=== PATIENT | male | born 1975 | race Caucasian/White ===

== ENCOUNTER 2023-03-13 10:52 | Emergency (ER) | payer OTHER, SELFPAY ==
--- NOTE | ~2023-03-13 | XR_ITS ---
EXAMINATION: XR LUMBOSACRAL SPINE CLINICAL INFORMATION: Pain COMPARISON: None available. TECHNIQUE: Three views of the lumbosacral spine. FINDINGS: There are five segmented, nonrib-bearing vertebra of the lumbar spine. The vertebral bodies have normal height and alignment. The curvature of the lumbar spine is normal. The disc spaces are maintained. No evidence of degenerative disc disease. No pars interarticularis defect or vertebral compression fracture. The anterior and posterior elements are intact. No lytic or osteoblastic lesion. Sacrum and sacroiliac joints are unremarkable. No evidence of sacroiliitis. XR/XR lumbar spine 2-3V IMPRESSION: No specific source of pain is identified. No evidence of degenerative disc disease, fracture or malalignment.
[2023-03-13 10:56] VITALS: BP 176/105; PULSE 93; RESP 18; TEMP 36.9; O2SAT 98; BMI 26.6
--- NOTE | 2023-03-13 10:59 | ED.GENADULT ---
HPI - General Adult General Chief complaint: Back Pain/Injury Stated complaint: Lower Back Pain Work Injury 03/09/23 Time Seen by Provider: 03/13/23 13:39 Source: patient Mode of arrival: ambulatory Limitations: no limitations History of Present Illness HPI narrative: 48 yo male presenting to the ER for evaluation of low back pain for the last 4 days after lifting a 35-40 lb case of cucumbers while at work. Patient states he lifted the box, turned and pivoted, when he put the box down he felt a twinge in his back. He is able to finish his day but had some pain in his lower back. As the days went on the pain progressed and radiates down into the tailbone. It is worse with sitting for prolonged amount of time. It is improved with standing walking around. He denies any numbness or tingling in the legs, no weakness. He does have some pain intermittently that radiates to the right buttock. No inguinal paresthesias. No bowel or bladder incontinence. No urinary symptoms. No falls or other trauma. MD complaint: Low back pain Onset (ago): day(s) (4) Location: back Radiation: other ( tailbone and buttock) Severity: moderate Severity scale (1-10): 7 Quality: stabbing and sharp Pain Consistency: constant Relieving factors: movement Exacerbating factors: other ( sitting, or being in any 1 position for too long) Associated symptoms: denies other symptoms Treatments prior to arrival: NSAID Related Data Previous Rx's Medication Instructions Recorded cyclobenzaprine 10 mg tablet 10 mg PO TID PRN muscle spasm #10 03/13/23 tabs ibuprofen 600 mg tablet 600 mg PO Q8H PRN pain #14 tabs 03/13/23 lidocaine 5 % topical patch 1 patch topical DAILY #15 ea 03/13/23 Allergies Allergy/AdvReac Type Severity Reaction Status Date / Time No Known Allergies Allergy Verified 03/13/23 10:55 Review of Systems Review of Systems: Yes all other systems are reviewed and are negative [facility] Social History Social History Advance Directives: No Advance Directives Information Provided: Yes Physical Exam ED Vital Signs: Vital Signs - 24 hr 03/13/23 10:56 Temperature 98.4 F Pulse Rate 93 Respiratory Rate 18 Blood Pressure 176/105 H Pulse Oximetry 98 Oxygen Delivery Method Room Air BMI result Body Mass Index 26.6 Appearance: Alert. Oriented X3. No acute distress. HEENT: normal inspection CVS: Normal heart rate and rhythm. Pulses normal. Respiratory: No respiratory distress. Skin: Skin warm and dry. Normal skin color. Normal skin turgor. No rashes. Back: Normal inspection. Able to flex and almost touch his toes. There is midline tenderness in the low lumbar area an SI joint tenderness on the right. Extremities: normal inspection, no joint swelling. Neuro: Oriented X 3. No motor deficit. No sensory deficit. Normal reflexes, steady gait. Course Course Course Narrative: RME- 48 year old male presents for evaluation of lower back pain for the last 3 days. He felt a twinge after lifting a container of cucumbers at work. Plan for lumbar x-ray Medical Decision Making Medical Decision Making [facility] Narrative: 48-year-old male presents to the ER for evaluation of low back pain after lifting heavy box on Thursday. No red flag symptoms of low back pain. Most likely muscular in nature, could be some nerve irritation or swelling with the SI joint tenderness. He had a knee unremarkable x-ray of the lumbar spine today. He is ambulatory. He has an appointment with [facility] on [facility]. Will start patient on muscle relaxers and NSAIDs, discussed rest, ice and other conservative measures. We also discussed return precautions and red flag symptoms. Patient agrees with plan is stable for discharge with outpatient follow-up. Differential Diagnosis Differential Diagnoses: The differential diagnosis associated with the presentation includes Inflammatory disorders, malignancy, trauma, osteoporosis, nerve root compression, radiculopathy, plexopathy, degenerative disc disease, disc herniation, spinal stenosis, sacroiliac joint dysfunction, facet joint injury, and less likely infection?like abscess or diskitis Independent Interpretation I performed an independent interpretation of an: Plain X-Ray Interpretation: xr without acute fracture, agree w/ radiology read Radiology Impression Discussion of test interpretation with radiology: I have reviewed the radiologist's reading. Radiologist Impression: EXAMINATION: XR LUMBOSACRAL SPINE CLINICAL INFORMATION: Pain COMPARISON: None available. TECHNIQUE: Three views of the lumbosacral spine. FINDINGS: There are five segmented, nonrib-bearing vertebra of the lumbar spine. The vertebral bodies have normal height and alignment. The curvature of the lumbar spine is normal. The disc spaces are maintained. No evidence of degenerative disc disease. No pars interarticularis defect or vertebral compression fracture. The anterior and posterior elements are intact. No lytic or osteoblastic lesion. Sacrum and sacroiliac joints are unremarkable. No evidence of sacroiliitis. XR/XR lumbar spine 2-3V IMPRESSION: No specific source of pain is identified. No evidence of degenerative disc disease, fracture or malalignment. Prescription Management I considered prescription management with: Pain Medication Critical Care Time Critical Care Time Critical Care Time: No Discharge Plan Discharge Clinical Impression: Strain of lumbar region Patient Disposition: Home, Self-Care Instructions: Low Back Strain (ED), Lower Back Exercises (ED) Additional Instructions: Your x-ray today was unremarkable. Your pain is most likely due to muscle strain and spasm. No bending, lifting or twisting. Use ice several times per day for 20 minutes at a time for the next 48 hours and then change to heat. Take medications as prescribed to help with pain and discomfort. Follow up with [facility] on Thursday as scheduled. If your pain worsens, if you develop new numbness, tingling, weakness, loss of function or incontinence call 911 or come back to the ER right away for evaluation. Prescriptions: New cyclobenzaprine 10 mg tablet 10 mg PO TID PRN (Reason: muscle spasm) Qty: 10 0RF lidocaine 5 % adhesive patch,medicated 1 patch topical DAILY Qty: 15 0RF Rx Instructions: leave on most painful area for up to 12 hrs ibuprofen 600 mg tablet 600 mg PO Q8H PRN (Reason: pain) Qty: 14 0RF Referrals: [facility] [Provider Group]
== END 2023-03-13 14:20 | disposition home or self-care (01) ==
PROVIDERS: Emergency Provider Emergency Medicine
DX: S39.012A Strain of muscle, fascia and tendon of lower back, initial encounter (principal); X50.0XXA Overexertion from strenuous movement or load, initial encounter; Y93.89 Activity, other specified; Y92.512 Supermarket, store or market as the place of occurrence of the external cause; Y99.0 Civilian activity done for income or pay
CPT/HCPCS: 72100; 99282; 99283

== ENCOUNTER → 2023-03-16 10:50 | Outpatient (BNVA) | payer OTHER, SELFPAY | PROVIDERS: Visit Provider Physician Assistant Medical | DX: S39.012A Strain of muscle, fascia and tendon of lower back, initial encounter (principal); X50.0XXA Overexertion from strenuous movement or load, initial encounter | CPT/HCPCS: 99202 ==

== ENCOUNTER → 2023-03-23 12:49 | Outpatient (BNVA) | payer OTHER, SELFPAY | PROVIDERS: Visit Provider Physician Assistant Medical | DX: S39.012A Strain of muscle, fascia and tendon of lower back, initial encounter (principal); S33.6XXA Sprain of sacroiliac joint, initial encounter; X58.XXXA Exposure to other specified factors, initial encounter | CPT/HCPCS: 99213 ==

== ENCOUNTER → 2023-04-06 12:43 | Outpatient (BNVA) | payer OTHER, SELFPAY | PROVIDERS: Visit Provider Physician Assistant Medical | DX: S39.012D Strain of muscle, fascia and tendon of lower back, subsequent encounter (principal); X50.0XXD Overexertion from strenuous movement or load, subsequent encounter; M46.1 Sacroiliitis, not elsewhere classified | CPT/HCPCS: 99213 ==

== ENCOUNTER → 2023-04-27 14:15 | Outpatient (BNVA) | payer OTHER, SELFPAY | PROVIDERS: PCP Family Medicine; Visit Provider Physician Assistant Medical | DX: S33.9XXD Sprain of unspecified parts of lumbar spine and pelvis, subsequent encounter (principal); X50.0XXD Overexertion from strenuous movement or load, subsequent encounter; M46.1 Sacroiliitis, not elsewhere classified | CPT/HCPCS: 99213 ==

== ENCOUNTER → 2023-05-11 14:15 | Outpatient (BNVA) | payer OTHER, SELFPAY | PROVIDERS: PCP Family Medicine; Visit Provider Physician Assistant Medical | DX: M46.1 Sacroiliitis, not elsewhere classified (principal) | CPT/HCPCS: 99213 ==

== ENCOUNTER 2023-05-26 14:00 | Outpatient (RCR) | payer OTHER, BC, SELFPAY ==
--- NOTE | 2023-07-21 14:37 | MHC.PT.DC ---
[facility] [place] Office [place] Office [place] Office [address] Nikia David [address] [phone] F: [phone] F: [phone] F: [phone] F: [phone] Physical Therapy Discharge Report Diagnosis: Low back strain, R sacroilitis Date of Surgery: Date of Evaluation: 04/07/23 Date of Discharge: 06/01/23 Treatments to Date: 12 Cancellations to Date: No Shows to Date: Discharge Status: Achieved Goals Improved Function Independent with HEP Discharge Summary: 05/26/23: pt progressed well over the course of skilled PT. I with HEP. TTP absent. normal piriformis tissue tension. Oswestry 18%. 90/90 lacking 20 b/l. He is I with s/s management and able to lift and carry 35 lbs with good mechanics and no exacerbation of s/s. 05/19/23: pt progressing well with skilled PT. s/s are minimal. notes no significant improvement from IFC. reviewed body mechanics. will update HEP And d/c to HEP NV. 05/12/23: attempted to resolve residual pain with IFC today. assess response. Normal skin appearance before and after. perform in supine NV. 05/07/23: pt progressing well with skilled PT. requires further cues with body mechanics. we will continue with this next visit. tends to round back with deeper squat. 05/05/23: pt with no s/s in LE. progressing very well. we will continue to progress with strength and functional activities. 04/30/23: pt progressing well with skilled PT. no adverse reactions from above. good tissue relief at R piriformis. he maintains good motivation in skilled PT and has experienced good evidence of healing. his s/s of centralized. his gait mechanics have normalized. his tissue tension and flexibility is improving as has his awareness of body mechanics and postures. he still does have impairments including pain, TTP, functional mobility, ROM and strength which manifest in functional limitations including sleeping, maintaining positions, bending, squatting and lifting. he still has work restrictions which we will progress on to improve and ensure safe return to all daily and work related activities. we will continue 2x/week for 4 more weeks then transition to HEP exclusively. 04/28/23: pt notes having episodes over the weekend of increased s/s into posterior R LE. we reinforced HEP. spent time releasing piriformis. we will assess response NV. 04/23: Pt is reporting as of late he has not been having lower leg symptoms, his foot burning is largely if not completely resolved and he is able to centralize on his own with REIL and KACIE; today he is reporting centralized soreness and stiffness; he does report peripheralizing to his buttocks and post thigh in the AM and PM; we gently introduced some non loaded flexion and rotation as well as STM, HP and TET for associated centralized pain. He tolerated this treatment well. No adverse effects. Continue with 04/21/23: pt has been feeling better overall with reduced s/s past buttocks. They still persist there at times and he feels confident in his ability to manage them. We finished today with a CP. 04/16: Pt reports he has been able to centralize his symptoms on his own with PPU and has trialed KACIE with some relief. He reports his foot burning Sx has greatly improved; he is encouraged. Progressed with core stab today; he was able to centralize in the clinic with PPT and KACIE which was reviewed and instructed on today. No adverse effects. continue with extension based program. 04/14: Today genna was able to repeatedly centralize his LE Sx to his sacrum with REIL; progressed core ex and Pt will be trialing REIL 4-5x/day. No adverse effects to Tx. Pt presents reporting that increased time in sitting makes his R leg worse, better in standing and walking. Today we discussed centralization of radicular symptoms and noticing his Sx. He demonstrated some R LE centralization with manual TxN in hook lying though this was short lived reporting tailbone pain and relief of his R thigh pain though R foot burning Sx persisted; Dariana hedrick improved his R foot burning some. HEP progressed; assess Dariana hedrick NV and positional amy. TxN an option? Electronically signed by: Torres Rose PT Please sign and return to therapist. Thank you for your referral.
== END 2023-07-21 14:38 | disposition home or self-care (01) ==
LOC: HO.PTCHIC 14:00
PROVIDERS: PCP Family Medicine; Visit Provider Physician Assistant Medical
DX: M54.50 Low back pain, unspecified (principal); M46.1 Sacroiliitis, not elsewhere classified
CPT/HCPCS: 97014; 97110; 97112; 97140; 97161

== ENCOUNTER → 2023-06-01 13:19 | Outpatient (BNVA) | payer OTHER, SELFPAY | PROVIDERS: PCP Family Medicine; Visit Provider Physician Assistant Medical | DX: S39.012D Strain of muscle, fascia and tendon of lower back, subsequent encounter (principal); S33.6XXD Sprain of sacroiliac joint, subsequent encounter; X58.XXXD Exposure to other specified factors, subsequent encounter | CPT/HCPCS: 99213 ==

== ENCOUNTER → 2023-07-14 16:18 | Outpatient (BNVA) | payer OTHER, SELFPAY | PROVIDERS: PCP Family Medicine; Visit Provider Physician Assistant Medical | DX: S39.012D Strain of muscle, fascia and tendon of lower back, subsequent encounter (principal); X50.0XXD Overexertion from strenuous movement or load, subsequent encounter; M51.27 Other intervertebral disc displacement, lumbosacral region | CPT/HCPCS: 99213 ==